=== PATIENT | female | born 1965 | race Two or more races ===

== ENCOUNTER 2016-07-06 06:00 | Emergency (ER) | payer BC, OTHER ==
[2016-07-06] MEDS ORDERED: Bacitracin Oint 1 GM U/D Packet TOP ONE (06:14)
[2016-07-06] MEDS ORDERED: Lidocaine 1% with EPINEPHrine 1:100,000 20 ML MDV INJECT ONE (06:14)
--- NOTE | 2016-07-06 06:15 | EDM.PDOC ---
ED HPI Skin/Rash - General Chief Complaint: Laceration Stated Complaint: CUT ON FOREHEAD Time Seen by Provider: 07/06/16 06:05 - History of Present Illness INITIAL COMMENTS - FREE TEXT/NARRATIVE: HISTORY AND PHYSICAL: History of present illness: The patient is a 50-year-old female who presents from work after she was carrying a box misstepped and fell forward hitting her face and cutting herself on her forehead near the left eyebrow just prior to arrival. The patient did not pass out and has had no nausea vomiting or any other complaints but does have pain in the area. She has no visual changes and her tetanus shot was in 2012. Patient presents for evaluation and care. Prior to these events she was in her usual state of good health with no systemic complaints. Review of systems: As per history of present illness and below otherwise all systems reviewed and negative. Past medical history: As per history of present illness and as reviewed below otherwise noncontributory. Surgical history: As per history of present illness and as reviewed below otherwise noncontributory. Social history: No reported history of drug or alcohol abuse. Family history: As per history of present illness and as reviewed below otherwise noncontributory. Physical exam: General: Well-developed well-nourished female who ambulated into the ED without assistance and is speaking clearly and easily. HEENT: Atraumatic except for a laceration at the medial aspect of the left eyebrow which measures approximately 1.5 cm and has depth through the subcutaneous. There is minimal oozing at the site and no gross soft tissue swelling. There are no palpable bony deformities of the orbits or nasal bones and only minimal soft tissue tenderness on palpation. EOMs intact, normocephalic , pupils reactive, negative for conjunctival pallor or scleral icterus, mucous membranes moist, throat clear, neck supple, nontender, trachea midline. Lungs: Clear to auscultation, breath sounds equal bilaterally, chest nontender. Heart: S1S2, regular, negative for clicks, rubs, or JVD. Abdomen: Soft, nondistended, nontender. NABS Pelvis: Stable nontender. Genitourinary: Deferred. Rectal: Deferred. Extremities: Atraumatic, full range of motion without defects or deficits negative for cords or calf pain. Neurovascular unremarkable. Neuro: Awake, alert, oriented. Cranial nerves II through XII unremarkable. Cerebellum unremarkable. Motor and sensory unremarkable throughout. Exam nonfocal. Diagnostics: None Therapeutics: Wound care Procedure note: The procedure was explained to the patient with lidocaine anesthetic and sutures. After the area was cleansed by nursing and 1% lidocaine with epinephrine was infused the wound was prepped and draped and was explored no foreign body was appreciated. The skin edges were reapproximated using a total number of #6 sutures of 5-0 nylon in a simple interrupted fashion. No complications the patient tolerated the procedure well. Bacitracin was applied. Impression: Left eyebrow laceration Definitive disposition and diagnosis as appropriate pending reevaluation and review of above. - Related Data Allergies Allergy/AdvReac Type Severity Reaction Status Date / Time No Known Allergies Allergy Verified 07/06/16 06:11 Home Meds: Ambulatory Orders Medication Instructions Recorded Confirmed . [No Known Home Meds] 01/19/16 07/06/16 Past Medical History - Past Health History Medical/Surgical History: Denies Medical/Surgical History Other OB/BYN History: Current Heavy irregular menses Other Psychiatric History: Spouse reports she is independent strong, if stressed likely would not reach out...would tough it out. - Past Surgical History GI Surgical History: Reports: Appendectomy Other Female Surgeries/Procedures: C-sections x 3 Social & Family History - Family History Family Medical History: Noncontributory - Tobacco Use Smoking Status *Q: Never Smoker Second Hand Smoke Exposure: No - Caffeine Use Caffeine Use: Reports: None - Alcohol Use Days Per Week of Alcohol Use: 0 - Recreational Drug Use Recreational Drug Use: No Drug Use in Last 12 Months: No ED ROS GENERAL - Review of Systems Review Of Systems: ROS reveals no pertinent complaints other than HPI. ED EXAM, SKIN/RASH Exam: See Below (See dictation) Course - Vital Signs Last Recorded V/S: Last Vital Signs Temp 36.6 C 07/06/16 06:12 Pulse 85 07/06/16 06:12 Resp 16 07/06/16 06:12 BP 162/94 H 07/06/16 06:12 Pulse Ox 97 07/06/16 06:12 - Orders/Labs/Meds Orders: Active Orders 24 hr Category Date Time Status Communication Order [RC] STAT Care 07/06/16 06:14 Active Meds: Medications Discontinued Medications Generic Name Dose Route Start Last Admin Trade Name Freq PRN Reason Stop Dose Admin Bacitracin 1 dose 07/06/16 06:14 07/06/16 06:24 Bacitracin Oint 1 Gm TOP 07/06/16 06:15 1 dose ONETIME ONE Administration Lidocaine/Epinephrine 20 ml 07/06/16 06:14 07/06/16 06:24 Xylocaine 1% With Epinephrine 1:100,000 INJECT 07/06/16 06:15 20 ml ONETIME ONE Administration Departure - Departure Time of Disposition: 06:38 Disposition: Home, Self-Care 01 Condition: good Clinical Impression: Facial laceration Qualifiers: Encounter type: initial encounter Qualified Code(s): S01.81XA - Laceration without foreign body of other part of head, initial encounter Referrals: PCP,None [Primary Care Provider] - Forms: ED Department Discharge Additional Instructions: The following information is given to patients seen in the emergency department who are being discharged to home. This information is to outline your options for follow-up care. We provide all patients seen in our emergency department with a follow-up referral. The need for follow-up, as well as the timing and circumstances, are variable depending upon the specifics of your emergency department visit. If you don't have a primary care physician on staff, we will provide you with a referral. We always advise you to contact your personal physician following an emergency department visit to inform them of the circumstance of the visit and for follow-up with them and/or the need for any referrals to a consulting specialist. The emergency department will also refer you to a specialist when appropriate. This referral assures that you have the opportunity for followup care with a specialist. All of these measure are taken in an effort to provide you with optimal care, which includes your followup. Under all circumstances we always encourage you to contact your private physician who remains a resource for coordinating your care. When calling for followup care, please make the office aware that this follow-up is from your recent emergency room visit. If for any reason you are refused follow-up, please contact the [facility] emergency department at and ask to speak to the emergency department charge nurse. [facility] Primary care- Internal Medicine and Family [address] [address] Please keep wound clean and dry for the next 24 hours and then cleanse with mild soap and water pat dry. Apply bacitracin or Neosporin for the next 2 days and then stop the ointment. Sutures should be removed in 7 days and we can either do that here in the ED or with your primary care provider. Return to ER as needed and as discussed. - My Orders Last 24 Hours: My Active Orders 07/06/16 06:14 Communication Order [RC] STAT - Assessment/Plan Last 24 Hours: My Active Orders 07/06/16 06:14 Communication Order [RC] STAT
[2016-07-06 06:53] VITALS: BP 128/83
== END 2016-07-06 06:45 | disposition home or self-care (01) ==
LOC: MW.ED 06:00
DX: S01.112A Laceration without foreign body of left eyelid and periocular area, initial encounter (principal); Z90.49 Acquired absence of other specified parts of digestive tract; W18.00XA Striking against unspecified object with subsequent fall, initial encounter
CPT/HCPCS: 12011; 96372; 99282; 99282-25

== ENCOUNTER 2016-07-13 08:38 | Emergency (ER) | payer OTHER ==
[2016-07-13] MEDS ORDERED: Sodium Chloride 0.9% 1,000 ML IV ONE (09:01)
--- NOTE | 2016-07-13 09:17 | EDM.PDOC ---
<Loreta Buck - Last Filed: 07/13/16 09:29> ED HPI GI/ABDOMINAL - General Chief Complaint: Gastrointestinal Problem Stated Complaint: STOMACH PAINS/STICHES OUT Time Seen by Provider: 07/13/16 08:40 - History of Present Illness INITIAL COMMENTS - FREE TEXT/NARRATIVE: This is Dr. Buck dictating addendum note as a supervising physician on this case. I agree with the above history and physical. The laceration is very well healed and sutures have been removed without any complications. We will perform CBC CMP and give the patient some hydration and Bentyl and plan for disposition home pending those results. - Related Data Allergies/ADRs: Allergies Allergy/AdvReac Type Severity Reaction Status Date / Time No Known Allergies Allergy Verified 07/13/16 08:55 Home Meds: Home Meds Dicyclomine HCl [Bentyl] 10 mg PO TID #30 capsule 07/13/16 [Rx] Course - Vital Signs Last Recorded V/S: Last Vital Signs Temp 97.3 F 07/13/16 08:52 Pulse 76 07/13/16 08:52 Resp 16 07/13/16 08:52 BP 154/74 H 07/13/16 08:52 Pulse Ox 98 07/13/16 08:52 - Orders/Labs/Meds Orders: Active Orders 24 hr Category Date Time Status Sodium Chloride 0.9% [Normal Saline] 1,000 ml Med 07/13/16 09:01 Active IV .Bolus Medication Orders Sodium Chloride (Normal Saline) 1,000 mls @ 999 mls/hr IV .Bolus ONE Stop: 07/13/16 10:01 Last Admin: 07/13/16 09:16 Dose: 999 mls/hr Labs: Laboratory Tests 07/13/16 07/13/16 Range/Units 09:10 09:10 WBC 6.17 (4.0-11.0) K/uL RBC 4.55 (4.30-5.90) M/uL Hgb 14.2 (12.0-16.0) g/dL Hct 41.5 (36.0-46.0) % MCV 91.2 (80.0-98.0) fL MCH 31.2 (27.0-32.0) pg MCHC 34.2 (31.0-37.0) g/dL RDW Std Deviation 42.0 (28.0-62.0) fl RDW Coeff of Anu 13 (11.0-15.0) % Plt Count 197 (150-400) K/uL MPV 11.90 (7.40-12.00) fL Neut % (Auto) 48.5 (48.0-80.0) % Lymph % (Auto) 43.4 H (16.0-40.0) % [place] % (Auto) 6.0 (0.0-15.0) % Eos % (Auto) 1.6 (0.0-7.0) % Baso % (Auto) 0.5 (0.0-1.5) % Neut # 3.0 (1.4-5.7) K/uL Lymph # 2.7 H (0.6-2.4) K/uL [place] # 0.4 (0.0-0.8) K/uL Eos # 0.1 (0.0-0.7) K/uL Baso # 0.0 (0.0-0.1) K/uL Nucleated RBC % 0.0 /100WBC Nucleated RBCs # 0 K/uL Sodium 143 (136-146) mmol/L Potassium 3.8 (3.5-5.1) mmol/L Chloride 110 (98-110) mmol/L Carbon Dioxide 24 (21-31) mmol/L BUN 16 (6.0-23.0) mg/dL Creatinine 0.8 (0.6-1.5) mg/dL Est Cr Clr Drug Dosing 68.02 mL/min Estimated GFR (MDRD) > 60.0 ml/min Glucose 122 H (60-110) mg/dL Calcium 9.1 (8.8-10.8) mg/dL Total Bilirubin 0.5 (0.1-1.5) mg/dL AST 28 (5-40) IU/L ALT 47 (8-54) IU/L Alkaline Phosphatase 77 (40-150) Total Protein 7.1 (6.0-8.0) g/dL Albumin 4.1 (3.5-5.0) g/dL Globulin 3.0 (2.0-3.5) g/dL Albumin/Globulin Ratio 1.4 (1.3-2.8) Meds: Medications Generic Name Dose Route Start Last Admin Trade Name Freq PRN Reason Stop Dose Admin Sodium Chloride 1,000 mls @ 999 mls/hr 07/13/16 09:01 07/13/16 09:16 Normal Saline IV 07/13/16 10:01 999 mls/hr .Bolus ONE Administration Discontinued Medications Generic Name Dose Route Start Last Admin Trade Name Sarah PRN Reason Stop Dose Admin Dicyclomine HCl 10 mg 07/13/16 09:30 07/13/16 09:51 Bentyl PO 07/13/16 09:31 10 mg ONETIME ONE Administration Departure - Departure Disposition: Home, Self-Care 01 Clinical Impression: Diarrhea, Gastroenteritis Prescriptions: Dicyclomine HCl [Bentyl] 10 mg PO TID #30 capsule Forms: ED Department Discharge Additional Instructions: The following information is given to patients seen in the emergency department who are being discharged to home. This information is to outline your options for follow-up care. We provide all patients seen in our emergency department with a follow-up referral. The need for follow-up, as well as the timing and circumstances, are variable depending upon the specifics of your emergency department visit. If you don't have a primary care physician on staff, we will provide you with a referral. We always advise you to contact your personal physician following an emergency department visit to inform them of the circumstance of the visit and for follow-up with them and/or the need for any referrals to a consulting specialist. The emergency department will also refer you to a specialist when appropriate. This referral assures that you have the opportunity for follow-up care with a specialist. All of these measure are taken in an effort to provide you with optimal care, which includes your follow-up. Under all circumstances we always encourage you to contact your private physician who remains a resource for coordinating your care. When calling for follow-up care, please make the office aware that this follow-up is from your recent emergency room visit. If for any reason you are refused follow-up, please contact the [facility] Emergency Department at and asked to speak to the emergency department charge nurse. - My Orders Last 24 Hours: My Active Orders 07/13/16 09:01 Sodium Chloride 0.9% [Normal Saline] 1,000 ml IV .Bolus - Assessment/Plan Last 24 Hours: My Active Orders 07/13/16 09:01 Sodium Chloride 0.9% [Normal Saline] 1,000 ml IV .Bolus <Akilah Sorensen - Last Filed: 07/13/16 09:58> ED HPI GI/ABDOMINAL - History of Present Illness INITIAL COMMENTS - FREE TEXT/NARRATIVE: History of present illness: [50 yo female here for suture removal of left eyebrow. She states her sutures are healing well. She also here for diarrhea symptoms that started last night. She does not have fever but felt chills. She has diffuse mild abdominal pain. She denies nausea, vomiting,dysuria, frequency, urgency, chest pain, sob, palpitations or other pertinent symptoms. She is menopausal. . ] Review of systems: As per history of present illness and below otherwise all systems reviewed and negative. Past medical history: As per history of present illness and as reviewed below otherwise noncontributory. Surgical history: As per history of present illness and as reviewed below otherwise noncontributory. Social history: No reported history of drug or alcohol abuse. Family history: As per history of present illness and as reviewed below otherwise noncontributory. Physical exam: General: Well developed, well nourished in NAD HEENT: Atraumatic, normocephalic, pupils reactive, negative for conjunctival pallor or scleral icterus, mucous membranes moist, throat clear, neck supple, nontender, trachea midline. Left Eyebrow: sutures in place. No bleeding,No erythema, No discharge noted. Lungs: Clear to auscultation, breath sounds equal bilaterally, chest nontender. Heart: S1S2, regular, negative for clicks, rubs, or JVD. Abdomen: Soft, nondistended, diffuse tenderness. Hyperactive bowel sounds. Negative for masses or hepatosplenomegaly. Negative for costovertebral tenderness. Pelvis: Stable nontender. Genitourinary: Deferred. Rectal: Deferred. Extremities: Atraumatic, negative for cords or calf pain. Neurovascular unremarkable. Neuro: Awake, alert, oriented. Cranial nerves II through XII unremarkable. Cerebellum unremarkable. Motor and sensory unremarkable throughout. Exam nonfocal. Diagnostics: CBC, CMP] Therapeutics: Bentyl by mouth x1] Impression: [Viral gastroenteritis] Plan: [Left eyebrow: 6 stitches removed. apply lotion to the suture site one minute daily and advised to use sunscreen. ] Definitive disposition and diagnosis as appropriate pending reevaluation and review of above Past Medical History - Past Health History Medical/Surgical History: Denies Medical/Surgical History HEENT History: Reports: None Cardiovascular History: Reports: None Respiratory History: Reports: None Genitourinary History: Reports: None Other OB/BYN History: Current Heavy irregular menses Neurological History: Reports: None Other Psychiatric History: Spouse reports she is independent strong, if stressed likely would not reach out...would tough it out. Endocrine/Metabolic History: Reports: None - Infectious Disease History Infectious Disease History: Reports: None - Past Surgical History GI Surgical History: Reports: Appendectomy Other Female Surgeries/Procedures: C-sections x 3 Social & Family History - Family History Family Medical History: Noncontributory - Tobacco Use Smoking Status *Q: Never Smoker Second Hand Smoke Exposure: No - Caffeine Use Caffeine Use: Reports: None - Alcohol Use Days Per Week of Alcohol Use: 0 - Recreational Drug Use Recreational Drug Use: No Drug Use in Last 12 Months: No ED ROS GENERAL - Review of Systems Review Of Systems: See Below (The history of present illness) ED EXAM, GI/ABD - Physical Exam Exam: See Below (The history of present illness) Course - Orders/Labs/Meds Labs: Laboratory Tests 07/13/16 07/13/16 Range/Units 09:10 09:10 WBC 6.17 (4.0-11.0) K/uL RBC 4.55 (4.30-5.90) M/uL Hgb 14.2 (12.0-16.0) g/dL Hct 41.5 (36.0-46.0) % MCV 91.2 (80.0-98.0) fL MCH 31.2 (27.0-32.0) pg MCHC 34.2 (31.0-37.0) g/dL RDW Std Deviation 42.0 (28.0-62.0) fl RDW Coeff of Anu 13 (11.0-15.0) % Plt Count 197 (150-400) K/uL MPV 11.90 (7.40-12.00) fL Neut % (Auto) 48.5 (48.0-80.0) % Lymph % (Auto) 43.4 H (16.0-40.0) % [place] % (Auto) 6.0 (0.0-15.0) % Eos % (Auto) 1.6 (0.0-7.0) % Baso % (Auto) 0.5 (0.0-1.5) % Neut # 3.0 (1.4-5.7) K/uL Lymph # 2.7 H (0.6-2.4) K/uL [place] # 0.4 (0.0-0.8) K/uL Eos # 0.1 (0.0-0.7) K/uL Baso # 0.0 (0.0-0.1) K/uL Nucleated RBC % 0.0 /100WBC Nucleated RBCs # 0 K/uL Sodium 143 (136-146) mmol/L Potassium 3.8 (3.5-5.1) mmol/L Chloride 110 (98-110) mmol/L Carbon Dioxide 24 (21-31) mmol/L BUN 16 (6.0-23.0) mg/dL Creatinine 0.8 (0.6-1.5) mg/dL Est Cr Clr Drug Dosing 68.02 mL/min Estimated GFR (MDRD) > 60.0 ml/min Glucose 122 H (60-110) mg/dL Calcium 9.1 (8.8-10.8) mg/dL Total Bilirubin 0.5 (0.1-1.5) mg/dL AST 28 (5-40) IU/L ALT 47 (8-54) IU/L Alkaline Phosphatase 77 (40-150) Total Protein 7.1 (6.0-8.0) g/dL Albumin 4.1 (3.5-5.0) g/dL Globulin 3.0 (2.0-3.5) g/dL Albumin/Globulin Ratio 1.4 (1.3-2.8) Departure - Departure Time of Disposition: 09:57 Condition: good
[2016-07-13] MEDS ORDERED: Dicyclomine 10 MG Cap PO ONE (09:30)
[2016-07-13 09:50] LABS: CHLORIDE,CL 110 mmol/L (98-110); SODIUM,NA 143 mmol/L (136-146)
[2016-07-13 10:15] VITALS: BP 130/80
== END 2016-07-13 10:13 | disposition home or self-care (01) ==
LOC: MW.ED 08:38
DX: K52.9 Noninfective gastroenteritis and colitis, unspecified (principal); Z90.49 Acquired absence of other specified parts of digestive tract
CPT/HCPCS: 36415; 80053; 85025; 96360; 99284; A9270; J7040; 99283

== ENCOUNTER 2016-11-11 10:38 | Emergency (ER) | payer OTHER ==
--- NOTE | 2016-11-11 11:20 | EDM.PDOC ---
ED HPI GENERAL MEDICAL PROBLEM - General Chief Complaint: Back Pain or Injury Stated Complaint: BACK PAIN Time Seen by Provider: 11/11/16 11:00 Source of Information: Reports: Patient, [employer] History Limitations: Reports: No Limitations - History of Present Illness INITIAL COMMENTS - FREE TEXT/NARRATIVE: HISTORY AND PHYSICAL: History of present illness: [Patient comes to the emergency room complaining of right low back pain. Friend acts as train station server as patient is Canadian-speaking. 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 She was reaching for a box that was high up. The box slid into her hands and was heavier than she anticipated. When she caught the box she twisted through her waist to the right and felt a popping and sharp shooting pain into her right low back. She denies numbness and tingling. No pain to her upper back, over her spine or shooting down her right leg. No left-sided pain. She has a history of low back pain several months ago which gradually resolved with rest.] Review of systems: As per history of present illness and below otherwise all systems reviewed and negative. Past medical history: As per history of present illness and as reviewed below otherwise noncontributory. Surgical history: As per history of present illness and as reviewed below otherwise noncontributory. Social history: No reported history of drug or alcohol abuse. Family history: As per history of present illness and as reviewed below otherwise noncontributory. Physical exam: HEENT: Atraumatic, normocephalic. Lungs: Clear to auscultation, breath sounds equal bilaterally. Heart: S1S2, regular rate and rhythm. Abdomen: Soft, nondistended, nontender. Back: No step-offs or tenderness over spine or bony processes. Mild swelling is noted to right low back over the upper lumbar area. No erythema, rashes or suspicious appearing lesions. Tender with palpation over this area. Negative straight leg raise. Patellar reflexes are 2+ and equal bilaterally. Range of motion is diminished with left lateral flexion, flexion and extension, and rotation through waist. No SI or hip tenderness. Pelvis: Stable nontender. Genitourinary: Deferred. Rectal: Deferred. Extremities: Atraumatic, negative for cords or calf pain. No swelling. Neuro: Awake, alert, oriented. Cranial nerves II through XII unremarkable. Motor and sensory unremarkable throughout. Exam nonfocal. Diagnostics: [L/S spine x-ray] Therapeutics: [Norflex 60 mg IM, Toradol 60 mg IM] Impression: [Right-sided low back pain] Plan: [Reviewed x-ray report with patient: No fractures or subluxations noted in the lumbar spine. Patient is discharged to home with instructions for rest, ice, OTC analgesics. ] Definitive disposition and diagnosis as appropriate pending reevaluation and review of above. - Related Data Allergies Allergy/AdvReac Type Severity Reaction Status Date / Time No Known Allergies Allergy Verified 07/13/16 08:55 Home Meds: Home Meds Dicyclomine HCl [Bentyl] 10 mg PO TID #30 capsule 07/13/16 [Rx] Naproxen 11/11/16 [History] Past Medical History - Past Health History Medical/Surgical History: Denies Medical/Surgical History HEENT History: Reports: None Cardiovascular History: Reports: None Respiratory History: Reports: None Genitourinary History: Reports: None Other OB/BYN History: Current Heavy irregular menses Neurological History: Reports: None Other Psychiatric History: Spouse reports she is independent strong, if stressed likely would not reach out...would tough it out. Endocrine/Metabolic History: Reports: None - Infectious Disease History Infectious Disease History: Reports: None - Past Surgical History GI Surgical History: Reports: Appendectomy Other Female Surgeries/Procedures: C-sections x 3 Social & Family History - Family History Family Medical History: Noncontributory - Tobacco Use Smoking Status *Q: Never Smoker Second Hand Smoke Exposure: No - Caffeine Use Caffeine Use: Reports: None - Alcohol Use Days Per Week of Alcohol Use: 0 - Recreational Drug Use Recreational Drug Use: No Drug Use in Last 12 Months: No ED ROS GENERAL - Review of Systems Review Of Systems: ROS reveals no pertinent complaints other than HPI. ED EXAM,LOWER BACK PAIN/INJURY - Physical Exam Exam: See Below Course - Vital Signs Last Recorded V/S: Last Vital Signs Temp 97.2 F 11/11/16 10:49 Pulse 71 11/11/16 12:36 Resp 16 11/11/16 12:36 BP 140/79 11/11/16 12:36 Pulse Ox 98 11/11/16 12:36 - Orders/Labs/Meds Orders: Active Orders 24 hr Category Date Time Status Lumbar Spine 2 or 3V [CR] Stat Exams 11/11/16 11:02 Taken Orphenadrine [Norflex] Med 11/11/16 11:15 Active 60 mg IM Q12H Medication Orders Orphenadrine Citrate (Norflex) 60 mg IM Q12H EDDIE Last Admin: 11/11/16 11:13 Dose: 60 mg Meds: Medications Generic Name Dose Route Start Last Admin Trade Name Freq PRN Reason Stop Dose Admin Orphenadrine Citrate 60 mg 11/11/16 11:15 11/11/16 11:13 Norflex IM 60 mg Q12H EDDIE Administration Discontinued Medications Generic Name Dose Route Start Last Admin Trade Name Freq PRN Reason Stop Dose Admin Ketorolac Tromethamine 60 mg 11/11/16 12:53 11/11/16 13:07 Toradol IM 11/11/16 12:54 60 mg ONETIME ONE Administration Departure - Departure Time of Disposition: 13:30 Disposition: Home, Self-Care 01 Condition: Good Clinical Impression: Low back pain Qualifiers: Chronicity: acute Back pain laterality: right Sciatica presence: without sciatica Qualified Code(s): M54.5 - Low back pain - Discharge Information Forms: ED Department Discharge Additional Instructions: The following information is given to patients seen in the emergency department who are being discharged to home. This information is to outline your options for follow-up care. We provide all patients seen in our emergency department with a follow-up referral. The need for follow-up, as well as the timing and circumstances, are variable depending upon the specifics of your emergency department visit. If you don't have a primary care physician on staff, we will provide you with a referral. We always advise you to contact your personal physician following an emergency department visit to inform them of the circumstance of the visit and for follow-up with them and/or the need for any referrals to a consulting specialist. The emergency department will also refer you to a specialist when appropriate. This referral assures that you have the opportunity for follow-up care with a specialist. All of these measure are taken in an effort to provide you with optimal care, which includes your follow-up. Under all circumstances we always encourage you to contact your private physician who remains a resource for coordinating your care. When calling for follow-up care, please make the office aware that this follow-up is from your recent emergency room visit. If for any reason you are refused follow-up, please contact the [facility] emergency department at and asked to speak to the emergency department charge nurse. [facility] [address] [place] [id number] Establish care at the clinic listed above in 48-72 hours. Rest, ice, Tylenol alternating with ibuprofen as needed for discomfort. Return to ER as needed as discussed. - My Orders Last 24 Hours: My Active Orders 11/11/16 11:02 Lumbar Spine 2 or 3V [CR] Stat 11/11/16 11:15 Orphenadrine [Norflex] 60 mg IM Q12H - Assessment/Plan Last 24 Hours: My Active Orders 11/11/16 11:02 Lumbar Spine 2 or 3V [CR] Stat 11/11/16 11:15 Orphenadrine [Norflex] 60 mg IM Q12H
[2016-11-11] MEDS ORDERED: Ketorolac 60 MG/2 ML SDV IM ONE (12:53)
[2016-11-11 13:35] VITALS: BP 146/83
--- NOTE | 2016-11-12 09:14 | CR ---
EXAM DATE: 11/11/16 PATIENT'S AGE: 51 Patient: DONNA RAGSDALE Facility: [place], [place] Site . Site : [id number] Study: XRay Spine Lumbar [id number]/[id number] 12:52:23 PM Ordering Physician: Doctor Flynn Final Report: INDICATION: Back pain. Technique: Three views lumbar spine. Findings: Mild thoracolumbar scoliosis. Minimal degenerative and hypertrophic changes in the spine. No acute fracture or subluxation in lumbar spine. Mid and lower lumbar facet sclerosis consistent with degenerative facet arthropathy. Mild gas distension of stomach with air-fluid level. Small focus of increased density or sclerosis overlying the mid sacrum slightly to the right of midline could be related over overlying bowel contents or a sclerotic lesion within the sacrum measuring 1.4 cm. Remainder negative. Dictated by Ethan Tobar MD @ Nov 11 2016 12:54PM (Electronic Signature) Report Signed by Proxy. MAXIME
== END 2016-11-11 13:33 | disposition home or self-care (01) ==
LOC: MW.ED 10:38
DX: M54.5 Low back pain (principal); Z90.49 Acquired absence of other specified parts of digestive tract
CPT/HCPCS: 72100; 96372; 99283; J1885; J2360

== ENCOUNTER 2018-09-13 13:07 | Emergency (ER) | payer SELFPAY ==
[2018-09-13] MEDS ORDERED: Sodium Chloride 0.9% 1,000 ML IV ONE (13:28)
[2018-09-13] MEDS ORDERED: Ondansetron 4 MG/2 ML SDV IVPUSH ONE (13:28)
--- NOTE | 2018-09-13 13:32 | EDM.PDOC ---
ED HPI GENERAL MEDICAL PROBLEM - General Chief Complaint: Cardiovascular Problem Stated Complaint: HIGH BLOOD PRESSURE Time Seen by Provider: 09/13/18 13:25 - History of Present Illness INITIAL COMMENTS - FREE TEXT/NARRATIVE: HISTORY AND PHYSICAL: History of present illness: Patiently 52-year-old female withpast medical history presents with concern of nausea vomiting since this morning she has no localized abdominal pain vaginal fever chills no chest pain shortness breath or other concern. She denies trauma Review of systems: As per history of present illness and below otherwise all systems reviewed and negative. Past medical history: As per history of present illness and as reviewed below otherwise noncontributory. Surgical history: As per history of present illness and as reviewed below otherwise noncontributory. Social history: No reported history of drug or alcohol abuse. Family history: As per history of present illness and as reviewed below otherwise noncontributory. Physical exam: HEENT: Atraumatic, normocephalic, pupils reactive, negative for conjunctival pallor or scleral icterus, mucous membranes dry throat clear, neck supple, nontender, trachea midline. Lungs: Clear to auscultation, breath sounds equal bilaterally, chest nontender. Heart: S1S2, regular, negative for clicks, rubs, or JVD. Abdomen: Soft, nondistended, no localized tenderness. Negative for masses or hepatosplenomegaly. Negative for costovertebral tenderness. Pelvis: Stable nontender. Genitourinary: Deferred. Rectal: Deferred. Extremities: Atraumatic, negative for cords or calf pain. Neurovascular unremarkable. Neuro: Awake, alert, oriented. Cranial nerves II through XII unremarkable. Cerebellum unremarkable. Motor and sensory unremarkable throughout. Exam nonfocal. Diagnostics: CBC CMP troponin lipase chest x-ray EKG CT abdomen and pelvis Therapeutics: Saline 1 L bolus Zofran 4 mg IV Impression: #1 vomiting #2 dehydration Definitive disposition and diagnosis as appropriate pending reevaluation and review of above. - Related Data Allergies Allergy/AdvReac Type Severity Reaction Status Date / Time No Known Allergies Allergy Verified 09/13/18 13:19 Home Meds: Home Meds . 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 Endocrine/Metabolic History: Reports: None Immunologic History: Reports: None Oncologic (Cancer) History: Reports: None - Infectious Disease History Infectious Disease History: Reports: None - Past Surgical History Head Surgeries/Procedures: Reports: None GI Surgical History: Reports: Appendectomy Other Female Surgeries/Procedures: C-sections x 3 Social & Family History - Family History Family Medical History: Noncontributory - Caffeine Use Caffeine Use: Reports: None ED ROS GENERAL - Review of Systems Review Of Systems: ROS reveals no pertinent complaints other than HPI. ED EXAM, GENERAL - Physical Exam Exam: See Below (See dictation) Course - Vital Signs Last Recorded V/S: Last Vital Signs Temp Pulse 66 09/13/18 14:50 Resp 18 09/13/18 14:50 BP 136/77 09/13/18 14:50 Pulse Ox 98 09/13/18 14:50 - Orders/Labs/Meds Orders: Active Orders 24 hr Category Date Time Status EKG Documentation Completion [RC] STAT Care 09/13/18 13:28 Active Labs: Laboratory Tests 09/13/18 09/13/18 09/13/18 Range/Units 13:30 13:30 13:30 WBC 6.59 (4.0-11.0) K/uL RBC 4.46 (4.30-5.90) M/uL Hgb 14.3 (12.0-16.0) g/dL Hct 41.1 (36.0-46.0) % MCV 92.2 (80.0-98.0) fL MCH 32.1 H (27.0-32.0) pg MCHC 34.8 (31.0-37.0) g/dL RDW Std Deviation 42.1 (28.0-62.0) fl RDW Coeff of Anu 13 (11.0-15.0) % Plt Count 195 (150-400) K/uL MPV 11.70 (7.40-12.00) fL Neut % (Auto) 64.0 (48.0-80.0) % Lymph % (Auto) 31.1 (16.0-40.0) % Cedar % (Auto) 3.8 (0.0-15.0) % Eos % (Auto) 0.8 (0.0-7.0) % Baso % (Auto) 0.3 (0.0-1.5) % Neut # (Auto) 4.2 (1.4-5.7) K/uL Lymph # (Auto) 2.1 (0.6-2.4) K/uL Cedar # (Auto) 0.3 (0.0-0.8) K/uL Eos # (Auto) 0.1 (0.0-0.7) K/uL Baso # (Auto) 0.0 (0.0-0.1) K/uL Nucleated RBC % 0.0 /100WBC Nucleated RBCs # 0 K/uL INR 0.98 Sodium 141 (136-145) mmol/L Potassium 3.7 (3.5-5.1) mmol/L Chloride 105 (98-107) mmol/L Carbon Dioxide 25.5 (21.0-32.0) mmol/L BUN 12 (7.0-18.0) mg/dL Creatinine 0.8 (0.6-1.0) mg/dL Est Cr Clr Drug Dosing 66.54 mL/min Estimated GFR (MDRD) > 60.0 ml/min Glucose 170 H (74-106) mg/dL Calcium 9.0 (8.5-10.1) mg/dL Total Bilirubin 0.4 (0.2-1.0) mg/dL AST 35 (15-37) IU/L ALT 57 (14-63) IU/L Alkaline Phosphatase 88 (46-116) U/L Troponin I < 0.050 (0.000-0.056) ng/mL Total Protein 7.4 (6.4-8.2) g/dL Albumin 3.9 (3.4-5.0) g/dL Globulin 3.5 (2.6-4.0) g/dL Albumin/Globulin Ratio 1.1 (0.9-1.6) Lipase 133 (73-393) U/L Urine Color Urine Appearance Urine pH (5.0-8.0) Ur Specific [place] (1.001-1.035) Urine Protein (NEGATIVE) mg/dL Urine Glucose (UA) (NEGATIVE) mg/dL Urine Ketones (NEGATIVE) mg/dL Urine Occult Blood (NEGATIVE) Urine Nitrite (NEGATIVE) Urine Bilirubin (NEGATIVE) Urine Urobilinogen (<2.0) EU/dL Ur Leukocyte Esterase (NEGATIVE) Urine RBC (0-2/HPF) Urine WBC (0-5/HPF) Ur Epithelial Cells (NONE-FEW) Urine Bacteria (NEGATIVE) 09/13/18 Range/Units 14:26 WBC (4.0-11.0) K/uL RBC (4.30-5.90) M/uL Hgb (12.0-16.0) g/dL Hct (36.0-46.0) % MCV (80.0-98.0) fL MCH (27.0-32.0) pg MCHC (31.0-37.0) g/dL RDW Std Deviation (28.0-62.0) fl RDW Coeff of Anu (11.0-15.0) % Plt Count (150-400) K/uL MPV (7.40-12.00) fL Neut % (Auto) (48.0-80.0) % Lymph % (Auto) (16.0-40.0) % Cedar % (Auto) (0.0-15.0) % Eos % (Auto) (0.0-7.0) % Baso % (Auto) (0.0-1.5) % Neut # (Auto) (1.4-5.7) K/uL Lymph # (Auto) (0.6-2.4) K/uL Cedar # (Auto) (0.0-0.8) K/uL Eos # (Auto) (0.0-0.7) K/uL Baso # (Auto) (0.0-0.1) K/uL Nucleated RBC % /100WBC Nucleated RBCs # K/uL INR Sodium (136-145) mmol/L Potassium (3.5-5.1) mmol/L Chloride (98-107) mmol/L Carbon Dioxide (21.0-32.0) mmol/L BUN (7.0-18.0) mg/dL Creatinine (0.6-1.0) mg/dL Est Cr Clr Drug Dosing mL/min Estimated GFR (MDRD) ml/min Glucose (74-106) mg/dL Calcium (8.5-10.1) mg/dL Total Bilirubin (0.2-1.0) mg/dL AST (15-37) IU/L ALT (14-63) IU/L Alkaline Phosphatase (46-116) U/L Troponin I (0.000-0.056) ng/mL Total Protein (6.4-8.2) g/dL Albumin (3.4-5.0) g/dL Globulin (2.6-4.0) g/dL Albumin/Globulin Ratio (0.9-1.6) Lipase (73-393) U/L Urine Color YELLOW Urine Appearance SLT CLOUDY Urine pH 6.5 (5.0-8.0) Ur Specific [place] 1.010 (1.001-1.035) Urine Protein NEGATIVE (NEGATIVE) mg/dL Urine Glucose (UA) NEGATIVE (NEGATIVE) mg/dL Urine Ketones NEGATIVE (NEGATIVE) mg/dL Urine Occult Blood TRACE-INTACT H (NEGATIVE) Urine Nitrite NEGATIVE (NEGATIVE) Urine Bilirubin NEGATIVE (NEGATIVE) Urine Urobilinogen 0.2 (<2.0) EU/dL Ur Leukocyte Esterase NEGATIVE (NEGATIVE) Urine RBC 0-2 (0-2/HPF) Urine WBC 1-2 (0-5/HPF) Ur Epithelial Cells FEW (NONE-FEW) Urine Bacteria 1+ H (NEGATIVE) Meds: Medications Discontinued Medications Generic Name Dose Route Start Last Admin Trade Name Freq PRN Reason Stop Dose Admin Sodium Chloride 1,000 mls @ 999 mls/hr 09/13/18 13:28 09/13/18 13:38 Normal Saline IV 09/13/18 14:28 999 mls/hr STAT ONE Administration Ondansetron HCl 4 mg 09/13/18 13:28 09/13/18 13:38 Zofran IVPUSH 09/13/18 13:29 4 mg ONETIME ONE Administration Departure - Departure Time of Disposition: 15:24 Disposition: Home, Self-Care 01 Condition: Good Clinical Impression: Vomiting, UTI (urinary tract infection) Referrals: PCP,None [Primary Care Provider] - Forms: ED Department Discharge Additional Instructions: The following information is given to patients seen in the emergency department who are being discharged to home. This information is to outline your options for follow-up care. We provide all patients seen in our emergency department with a follow-up referral. The need for follow-up, as well as the timing and circumstances, are variable depending upon the specifics of your emergency department visit. If you don't have a primary care physician on staff, we will provide you with a referral. We always advise you to contact your personal physician following an emergency department visit to inform them of the circumstance of the visit and for follow-up with them and/or the need for any referrals to a consulting specialist. The emergency department will also refer you to a specialist when appropriate. This referral assures that you have the opportunity for followup care with a specialist. All of these measure are taken in an effort to provide you with optimal care, which includes your followup. Under all circumstances we always encourage you to contact your private physician who remains a resource for coordinating your care. When calling for followup care, please make the office aware that this follow-up is from your recent emergency room visit. If for any reason you are refused follow-up, please contact the [facility] emergency department at and asked to speak to the emergency department charge nurse. Push fluids clear liquids as directed avoid dairy 72 hours Zofran and Cipro as prescribed return as needed as discussed follow-up primary medical doctor - My Orders Last 24 Hours: My Active Orders 09/13/18 13:28 EKG Documentation Completion [RC] STAT - Assessment/Plan Last 24 Hours: My Active Orders 09/13/18 13:28 EKG Documentation Completion [RC] STAT
--- NOTE | 2018-09-13 14:10 | CT ---
CT of the abdomen and pelvis without contrast. HISTORY: Pain TECHNIQUE: Axial CT images were obtained of the abdomen and pelvis without contrast. Coronal and sagittal reconstructions obtained. FINDINGS: The lung bases are clear, no pleural effusion. Mild fatty infiltration of the liver. The spleen, adrenal glands, and pancreas appear unremarkable for noncontrast examination. The gallbladder appears normal. There is no bulky retroperitoneal lymphadenopathy. No abdominal ascites. There are no calcifications noted within the kidneys or along the courses of the ureters bilaterally. The large and small bowel are normal in caliber without evidence of obstruction. There is no bulky pelvic lymphadenopathy. No free fluid. No free air. The urinary bladder appears normal. The visualized osseous structures appear normal. IMPRESSION: No acute findings within the abdomen or pelvis.
[2018-09-13 14:25] LABS: CHLORIDE,CL 105 mmol/L (98-107); SODIUM,NA 141 mmol/L (136-145)
[2018-09-13 15:39] VITALS: BP 129/94
== END 2018-09-13 15:35 | disposition home or self-care (01) ==
LOC: MW.ED 13:07
DX: N39.0 Urinary tract infection, site not specified (principal); E86.0 Dehydration; R11.2 Nausea with vomiting, unspecified; Z90.49 Acquired absence of other specified parts of digestive tract
CPT/HCPCS: 36415; 74176; 80053; 81001; 83690; 84484; 85025; 85610; 93005; 96361; 96374; 99284; J2405; J7040

== ENCOUNTER 2019-05-02 10:52 | Emergency (ER) | payer OTHER ==
[2019-05-02] MEDS ORDERED: Ketorolac 60 MG/2 ML SDV IM ONE (11:26)
--- NOTE | 2019-05-02 11:34 | EDM.PDOC ---
ED HPI GENERAL MEDICAL PROBLEM - General Chief Complaint: Back Pain or Injury Stated Complaint: BACK PAIN Time Seen by Provider: 05/02/19 11:15 Source of Information: Reports: Patient History Limitations: Reports: No Limitations - History of Present Illness INITIAL COMMENTS - FREE TEXT/NARRATIVE: HISTORY AND PHYSICAL: History of present illness: Patient is a 53-year-old female who presents to the emergency room with complaints of right shoulder and right lateral chest wall pain after doing heavy lifting at work. She states she was lifting something heavy and having to pull it up over her shoulder when she felt sharp pain to her right shoulder and right lateral chest wall. She has been using Tylenol, ibuprofen and topical creams to help alleviate the discomfort but has not felt much improvement. Pain is aggravated with movement, coughing, deep breathing or twisting at the torso. She denies any falls or blunt force trauma of the affected areas. Denies any numbness, tingling, saddle paresthesia. Denies any urinary or fecal incontinence. Offers no systemic complaints. [employer] services was used: [employer] Speaking Review of systems: As per history of present illness and below otherwise all systems reviewed and negative. Past medical history: As per history of present illness and as reviewed below otherwise noncontributory. Surgical history: As per history of present illness and as reviewed below otherwise noncontributory. Social history: See social history for further information Family history: As per history of present illness and as reviewed below otherwise noncontributory. Physical exam: General: Well-developed and well-nourished 53-year-old female. Alert and appropriate for age. Nontoxic-appearing and in no acute distress. HEENT: Atraumatic, normocephalic, pupils equal and reactive bilaterally, negative for conjunctival pallor or scleral icterus, mucous membranes moist, TMs normal bilaterally, throat clear, neck supple, nontender, trachea midline. No drooling or trismus noted. No meningeal signs. No hot potato voice noted. Lungs: Clear to auscultation, breath sounds equal bilaterally, chest tender with palpation of the right lateral/midaxillary area. Heart: S1S2, regular rate and rhythm without overt murmur Abdomen: Soft, nondistended, nontender. Negative for masses or hepatosplenomegaly. Negative for costovertebral tenderness. Pelvis: Stable nontender. Skin: Intact, warm, dry. No lesions or rashes noted. Extremities: Pain with range of motion of the right shoulder although she is able to perform the activity. Otherwise moves all extremities per self without difficulty or deficits. Neurovascular unremarkable. C-spine/Back: No pinpoint vertebral tenderness upon palpation. No crepitus, step -offs or obvious deformities. Patient is ambulatory into the emergency room without difficulty or deficit. Able to rock back on heels and walk on toes. Denies any urinary or fecal incontinence. Denies any numbness, tingling or saddle paresthesia. Neuro: Awake, alert, oriented. Cranial nerves II through XII unremarkable. Cerebellum unremarkable. Motor and sensory unremarkable throughout. Exam nonfocal. Notes: Patient did find relief with the IM injections. X-rays are within normal limits. Will place in sling and encouraged her to follow-up with primary care or orthopedic provider. Supportive care measures were reviewed and discussed. Voices understanding and is agreeable to plan of care. Denies any further questions or concerns at this time. Diagnostics: Xray right shoulder/chest with rib detail Therapeutics: Toradol/NOrflex IM Prescription: Flexeril Diclofenac Impression: Muscular Strain Rib injury Plan: 1. The medication you received today does cause drowsiness, so do not drive for the remaining day 2. When resting please lay on a flat firm surface. Limit your immobility to prevent muscle stiffness. Get up to ambulate/move around/gentle stretching multiple times throughout the day. May alternate heat and ice to the painful areas 3. Tylenol as needed for back pain. Otherwise take the prescribed Flexeril and diclofenac as directed. Diclofenac is an anti-inflammatory so do not take any additional NSAIDs with this medication, such as ibuprofen or Aleve. Flexeril as a muscle relaxant, this medication may cause drowsiness a do not take it will driving her needing to be functioning outside of the house. 4. Please follow-up with your primary care provider as we discussed. Return to the ED as needed and as discussed. Definitive disposition and diagnosis as appropriate pending reevaluation and review of above. Right Shoulder Pain Score (Numeric/FACES): 10 - Related Data Allergies Allergy/AdvReac Type Severity Reaction Status Date / Time No Known Allergies Allergy Verified 05/02/19 11:03 Home Meds: Home Meds . 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 Endocrine/Metabolic History: Reports: None Immunologic History: Reports: None Oncologic (Cancer) History: Reports: None - Infectious Disease History Infectious Disease History: Reports: None - Past Surgical History Head Surgeries/Procedures: Reports: None GI Surgical History: Reports: Appendectomy Other Female Surgeries/Procedures: C-sections x 3 Social & Family History - Family History Family Medical History: Noncontributory - Tobacco Use Smoking Status *Q: Never Smoker Second Hand Smoke Exposure: No - Caffeine Use Caffeine Use: Reports: None - Recreational Drug Use Recreational Drug Use: No ED ROS GENERAL - Review of Systems Review Of Systems: Comprehensive ROS is negative, except as noted in HPI. ED EXAM, UPPER BACK/NECK PAIN - Physical Exam Exam: See Below (See dictation) Course - Vital Signs Last Recorded V/S: Last Vital Signs Temp 97.5 F 05/02/19 11:08 Pulse 86 05/02/19 11:08 Resp 20 05/02/19 11:08 BP 136/89 05/02/19 11:08 Pulse Ox 100 05/02/19 11:08 - Orders/Labs/Meds Meds: Medications Discontinued Medications Generic Name Dose Route Start Last Admin Trade Name Sarah PRN Reason Stop Dose Admin Ketorolac Tromethamine 60 mg 05/02/19 11:26 05/02/19 11:42 Toradol IM 05/02/19 11:27 60 mg ONETIME ONE Administration Orphenadrine Citrate 60 mg 05/02/19 11:26 05/02/19 11:42 Norflex IM 05/02/19 11:27 60 mg ONETIME ONE Administration Departure - Departure Time of Disposition: 12:23 Disposition: Home, Self-Care 01 Clinical Impression: Muscle strain, Rib injury - Discharge Information Instructions: Muscle Strain, [id number] Referrals: PCP,None [Primary Care Provider] - Forms: ED Department Discharge Additional Instructions: The following information is given to patients seen in the emergency department who are being discharged to home. This information is to outline your options for follow-up care. We provide all patients seen in our emergency department with a follow-up referral. The need for follow-up, as well as the timing and circumstances, are variable depending upon the specifics of your emergency department visit. If you don't have a primary care physician on staff, we will provide you with a referral. We always advise you to contact your personal physician following an emergency department visit to inform them of the circumstance of the visit and for follow-up with them and/or the need for any referrals to a consulting specialist. The emergency department will also refer you to a specialist when appropriate. This referral assures that you have the opportunity for follow-up care with a specialist. All of these measure are taken in an effort to provide you with optimal care, which includes your follow-up. Under all circumstances we always encourage you to contact your private physician who remains a resource for coordinating your care. When calling for follow-up care, please make the office aware that this follow-up is from your recent emergency room visit. If for any reason you are refused follow-up, please contact the [facility] Emergency Department at and asked to speak to the emergency department charge nurse. [facility] [address] [place] [id number] [place] [address] 1. The medication you received today does cause drowsiness, so do not drive for the remaining day 2. When resting please lay on a flat firm surface. Limit your immobility to prevent muscle stiffness. Get up to ambulate/move around/gentle stretching multiple times throughout the day. May alternate heat and ice to the painful areas 3. Tylenol as needed for back pain. Otherwise take the prescribed Flexeril and diclofenac as directed. Diclofenac is an anti-inflammatory so do not take any additional NSAIDs with this medication, such as ibuprofen or Aleve. Flexeril as a muscle relaxant, this medication may cause drowsiness a do not take it will driving her needing to be functioning outside of the house. 4. Please follow-up with your primary care provider as we discussed. Return to the ED as needed and as discussed. Sepsis Event Note - Evaluation Sepsis Screening Result: No Definite Risk - Focused Exam Vital Signs: Vital Signs Temp Pulse Resp BP Pulse Ox 05/02/19 11:08 97.5 F 86 20 136/89 100 Date Exam was Performed: 05/02/19 Time Exam was Performed: 12:21
--- NOTE | 2019-05-02 12:16 | CR ---
Chest and right ribs: Frontal view of the chest was obtained as well as 3 views of the right ribs. Comparison: No previous right rib exam. Heart size and mediastinum are normal. Lungs are clear. No discrete fracture or other right sided rib abnormality is appreciated. Impression: 1. No abnormality is appreciated on right rib exam. 2. Nothing acute is seen on accompanying chest x-ray. Diagnostic code #1 This report was dictated in [place] Standard Time
--- NOTE | 2019-05-02 12:16 | CR ---
Right shoulder: 3 views of the right shoulder were obtained. Comparison: No previous shoulder study. Glenohumeral joint and acromioclavicular joint appears within normal limits. No fracture or other bony abnormality is seen. Impression: 1. No abnormality is appreciated on 3 view right shoulder study. Diagnostic code #1 This report was dictated in [place] Standard Time
[2019-05-02 13:28] VITALS: BP 129/65; PULSE 69
== END 2019-05-02 12:30 | disposition home or self-care (01) ==
LOC: MW.ED 10:52
DX: S29.9XXA Unspecified injury of thorax, initial encounter (principal); T14.8XXA Other injury of unspecified body region, initial encounter; X50.0XXA Overexertion from strenuous movement or load, initial encounter; Y93.89 Activity, other specified; Y92.89 Other specified places as the place of occurrence of the external cause; Y99.0 Civilian activity done for income or pay
CPT/HCPCS: 71101; 73030; 96372; 99285; J1885; J2360

== ENCOUNTER 2020-04-15 20:34 | Emergency (ER) | payer SELFPAY ==
--- NOTE | 2020-04-15 20:41 | EDM.PDOC ---
ED HPI GENERAL MEDICAL PROBLEM - General Stated Complaint: COUGH, HEADACHE Time Seen by Provider: 04/15/20 20:36 Source of Information: Reports: Patient History Limitations: Reports: No Limitations - History of Present Illness INITIAL COMMENTS - FREE TEXT/NARRATIVE: 54-year-old female no relevant past medical history presents for cough, headache, shortness of breath, chest tightness x1 week. Patient does note that she was recently evaluated in home country of [place]. She had a negative Covid test but did not have any imaging or lab work done at that time. She notes that she was given paracetamol as well as cough medicine which seemed to help initially but symptoms progressively worsened. She notes subjective fever, generalized headache, chest pain with coughing, cough, shortness of breath. - Related Data Allergies Allergy/AdvReac Type Severity Reaction Status Date / Time No Known Allergies Allergy Verified 04/15/20 20:50 Home Meds: Home Meds Ibuprofen [Motrin] 600 mg PO Q6H PRN #28 tab 04/15/20 [Rx] Past Medical History - Past Health History Medical/Surgical History: Denies Medical/Surgical History HEENT History: Reports: None Cardiovascular History: Reports: None Respiratory History: Reports: None Genitourinary History: Reports: None Other [employer] History: Current Heavy irregular menses Musculoskeletal History: Reports: Back Pain, Chronic Neurological History: Reports: None Other Psychiatric History: Spouse reports she is independent strong, if stressed likely would not reach out...would tough it out. Endocrine/Metabolic History: Reports: None Immunologic History: Reports: None Oncologic (Cancer) History: Reports: None - Infectious Disease History Infectious Disease History: Reports: None - Past Surgical History Head Surgeries/Procedures: Reports: None GI Surgical History: Reports: Appendectomy Other Female Surgeries/Procedures: C-sections x 3 Social & Family History - Family History Family Medical History: No Pertinent Family History - Caffeine Use Caffeine Use: Reports: None ED ROS GENERAL - Review of Systems Review Of Systems: Comprehensive ROS is negative, except as noted in HPI. ED EXAM, GENERAL - Physical Exam Exam: See Below Exam Limited By: No Limitations General Appearance: Alert, WD/WN, No Apparent Distress Throat/Mouth: Normal Inspection, Normal Lips, Normal Oropharynx, Normal Voice, N o Airway Compromise Head: Atraumatic, Normocephalic Neck: Normal Inspection Respiratory/Chest: No Respiratory Distress, Lungs Clear, Normal Breath Sounds, No Accessory Muscle Use, Other (Coughs throughout exam) Cardiovascular: Normal Peripheral Pulses, Tachycardia Extremities: Normal Inspection Neurological: Alert Psychiatric: Normal Affect, Normal Mood Skin Exam: Warm, Dry, Intact, Normal Color Course - Vital Signs Last Recorded V/S: Last Vital Signs Temp 98.7 F 04/15/20 21:06 Pulse 104 H 04/15/20 21:06 Resp 16 04/15/20 21:06 BP 106/55 L 04/15/20 21:06 Pulse Ox 99 04/15/20 21:06 - Orders/Labs/Meds Orders: Active Orders 24 hr Category Date Time Status Cardiac Monitoring [RC] . DIRECTED Care 04/15/20 20:46 Active Pulse Oximetry [RC] ASDIRECTED Care 04/15/20 20:46 Active C-REACTIVE PROTEIN [CHEM] Stat Lab 04/15/20 20:46 Ordered CBC WITH AUTO DIFF [HEME] Stat Lab 04/15/20 20:46 Ordered COMPREHENSIVE METABOLIC PN,CMP [CHEM] Stat Lab 04/15/20 20:46 Ordered COVID-19/FLU A+B [MOLEC] Stat Lab 04/15/20 20:50 Ordered LACTATE WITH REFLEX [BG] Stat Lab 04/15/20 20:45 Ordered MAGNESIUM [CHEM] Stat Lab 04/15/20 20:46 Ordered Sodium Chloride 0.9% [Saline Flush] Med 04/15/20 20:45 Active 10 ml FLUSH ASDIRECTED PRN Sodium Chloride 0.9% [Saline Flush] Med 04/15/20 20:45 Active 2.5 ml FLUSH ASDIRECTED PRN Saline Lock Insert [OM.PC] Stat Oth 04/15/20 20:46 Ordered Medication Orders Sodium Chloride (Saline Flush) 10 ml FLUSH ASDIRECTED PRN PRN Reason: Keep Vein Open Last Admin: 04/15/20 21:12 Dose: 10 ml Documented by: JHONNY Sodium Chloride (Saline Flush) 2.5 ml FLUSH ASDIRECTED PRN PRN Reason: Keep Vein Open Last Admin: 04/15/20 21:12 Dose: 2.5 ml Documented by: JHONNY Meds: Medications Generic Name Dose Route Start Last Admin Trade Name Freq PRN Reason Stop Dose Admin Sodium Chloride 10 ml 04/15/20 20:45 04/15/20 21:12 Saline Flush FLUSH 10 ml ASDIRECTED PRN Administration Keep Vein Open Sodium Chloride 2.5 ml 04/15/20 20:45 04/15/20 21:12 Saline Flush FLUSH 2.5 ml ASDIRECTED PRN Administration Keep Vein Open Discontinued Medications Generic Name Dose Route Start Last Admin Trade Name Sarah PRN Reason Stop Dose Admin Acetaminophen 1,000 mg 04/15/20 20:45 04/15/20 20:59 Tylenol Extra Strength PO 04/15/20 20:46 1,000 mg ONETIME ONE Administration Sodium Chloride 1,000 mls @ 999 mls/hr 04/15/20 20:45 04/15/20 21:00 Normal Saline IV 04/15/20 21:45 999 mls/hr .Bolus ONE Administration Lactated Ringer's 1,000 mls @ 999 mls/hr 04/15/20 21:20 Ringers, Lactated IV 04/15/20 22:20 .BOLUS ONE Ketorolac Tromethamine 15 mg 04/15/20 20:46 04/15/20 21:00 Toradol IVPUSH 04/15/20 20:47 15 mg ONETIME ONE Administration Potassium Chloride 40 meq 04/15/20 21:54 Klor-Con M20 PO 04/15/20 21:55 ONETIME ONE - Re-Assessments/Exams Free Text/Narrative Re-Assessment/Exam: 04/15/20 20:49 We will get Covid swab, chest x-ray, basic labs. Will give IV fluid bolus, Toradol, acetaminophen 04/15/20 21:20 Patient's lactate is mildly elevated at 2.1. Will give additional liter IV fluid bolus. 04/15/20 22:00 Labs remarkable for hypokalemia to 3.0, mild transaminitis, CRP elevated to 10.6. 04/15/20 22:18 Patient's x-ray reveals evidence of atypical pneumonia consistent with probable COVID-19 diagnosis. 04/15/20 22:46 COVID-19 test is positive. Patient's oxygen saturations 98% on room air. Her heart rate is down to 80s after fluid bolus. Will discharge with Rx for Motrin. Explained return precautions at length. Departure - Departure Time of Disposition: 22:46 Disposition: Home, Self-Care 01 Condition: Good Clinical Impression: COVID-19 - Discharge Information Prescriptions: Ibuprofen [Motrin] 600 mg PO Q6H PRN #28 tab PRN Reason: Pain Instructions: COVID-19 Frequently Asked Questions, COVID-19: How to Protect Yourself and Others - CDC, Prevent the Spread of COVID-19 if You Are Sick - [facility] Referrals: PCP,None [Primary Care Provider] - Additional Instructions: The following information is given to patients seen in the emergency department who are being discharged to home. This information is to outline your options for follow-up care. We provide all patients seen in our emergency department with a follow-up referral. The need for follow-up, as well as the timing and circumstances, are variable depending upon the specifics of your emergency department visit. If you don't have a primary care physician on staff, we will provide you with a referral. We always advise you to contact your personal physician following an emergency department visit to inform them of the circumstance of the visit and for follow-up with them and/or the need for any referrals to a consulting specialist. The emergency department will also refer you to a specialist when appropriate. This referral assures that you have the opportunity for follow-up care with a specialist. All of these measure are taken in an effort to provide you with optimal care, which includes your follow-up. Under all circumstances we always encourage you to contact your private physician who remains a resource for coordinating your care. When calling for follow-up care, please make the office aware that this follow-up is from your recent emergency room visit. If for any reason you are refused follow-up, please contact the [facility] Emergency Department at and asked to speak to the emergency department charge nurse. Please follow up with your primary care physician. If you do not have a primary care physician, see below: [facility] [address] [place] [id number] [facility] [address] [place] [id number] Sepsis Event Note (ED) - Focused Exam Vital Signs: Vital Signs Temp Pulse Resp BP Pulse Ox 04/15/20 21:06 98.7 F 104 H 16 106/55 L 99 04/15/20 20:50 98.0 F 108 H 18 144/68 H 93 L - My Orders Last 24 Hours: My Active Orders 04/15/20 20:45 LACTATE WITH REFLEX [BG] Stat Sodium Chloride 0.9% [Saline Flush] 10 ml FLUSH ASDIRECTED PRN Sodium Chloride 0.9% [Saline Flush] 2.5 ml FLUSH ASDIRECTED PRN 04/15/20 20:46 Cardiac Monitoring [RC] . DIRECTED Pulse Oximetry [RC] ASDIRECTED C-REACTIVE PROTEIN [CHEM] Stat CBC WITH AUTO DIFF [HEME] Stat COMPREHENSIVE METABOLIC PN,CMP [CHEM] Stat MAGNESIUM [CHEM] Stat Saline Lock Insert [OM.PC] Stat 04/15/20 20:50 COVID-19/FLU A+B [MOLEC] Stat - Assessment/Plan Last 24 Hours: My Active Orders 04/15/20 20:45 LACTATE WITH REFLEX [BG] Stat Sodium Chloride 0.9% [Saline Flush] 10 ml FLUSH ASDIRECTED PRN Sodium Chloride 0.9% [Saline Flush] 2.5 ml FLUSH ASDIRECTED PRN 04/15/20 20:46 Cardiac Monitoring [RC] . DIRECTED Pulse Oximetry [RC] ASDIRECTED C-REACTIVE PROTEIN [CHEM] Stat CBC WITH AUTO DIFF [HEME] Stat COMPREHENSIVE METABOLIC PN,CMP [CHEM] Stat MAGNESIUM [CHEM] Stat Saline Lock Insert [OM.PC] Stat 04/15/20 20:50 COVID-19/FLU A+B [MOLEC] Stat
[2020-04-15] MEDS ORDERED: Sodium Chloride 0.9% 1,000 ML IV ONE (20:45)
[2020-04-15] MEDS ORDERED: Acetaminophen 500 MG Tab PO ONE (20:45)
[2020-04-15] MEDS ORDERED: Sodium Chloride 0.9% 10 ML Syringe FLUSH PRN (20:45)
[2020-04-15] MEDS ORDERED: Sodium Chloride 0.9% 2.5 ML Syringe FLUSH PRN (20:45)
[2020-04-15] MEDS ORDERED: Ketorolac 15 MG/ML SDV IVPUSH ONE (20:46)
[2020-04-15 21:08] VITALS: BP 106/55; PULSE 104
[2020-04-15] MEDS ORDERED: Lactated Ringers 1,000 ML IV ONE (21:20)
[2020-04-15] MEDS ORDERED: Potassium Chloride 20 MEQ Tab.ER PO ONE (21:54)
--- NOTE | 2020-04-15 22:16 | CR ---
INDICATION: Cough, headache TECHNIQUE: Portable upright AP view of the chest COMPARISON: None FINDINGS: There are subtle airspace opacities in the peripheral lower lung orona bilaterally. There is no sizable pleural effusion or pneumothorax. The cardiomediastinal silhouette is normal. The visualized osseous structures are unremarkable. IMPRESSION: Subtle airspace opacities in the peripheral lower lung orona, favoring atypical pneumonia. COVID-19 a possibility. Dictated by Angie Abreu MD @ Apr 15 2020 10:11PM Signed by Dr. Angie Abreu @ Apr 15 2020 10:14PM
[2020-04-16 02:33] LABS: CARBON DIOXIDE,CO2 28.6 mmol/L (21.0-32.0)
[2020-04-17 06:06] LABS: CORONAVIRUS COVID-19 NAA POSITIVE (NEGATIVE); INFLUENZA A NAA NEGATIVE (NEGATIVE); INFLUENZA B NAA NEGATIVE (NEGATIVE)
== END 2020-04-15 23:18 | disposition home or self-care (01) ==
LOC: MW.ED 20:34
DX: U07.1 COVID-19 (principal)
CPT/HCPCS: 0240U; 36415; 71045; 80053; 83605; 83735; 85025; 86140; 96374; 99285; A9270; J1885; J7030; 99283